=== PATIENT | female | born 1975 | race Hispanic/Latino ===

== ENCOUNTER → 2022-12-31 | Outpatient (CLI) | payer BC | END | disposition home or self-care (01) | LOC: SHCH 15:13 | PROVIDERS: ATTEND Internal Medicine | DX: R00.2 Palpitations (principal) | CPT/HCPCS: 93306 ==

== ENCOUNTER → 2023-01-20 | Outpatient (CLI) | payer BC | END | disposition home or self-care (01) | LOC: RAH 07:35 | PROVIDERS: ATTEND Internal Medicine Gastroenterology | DX: R68.81 Early satiety (principal); R10.13 Epigastric pain | CPT/HCPCS: 78264; A9541 ==

== ENCOUNTER → 2023-01-26 | Outpatient (CLI) | payer BC | END | disposition home or self-care (01) | LOC: RAH 09:56 | PROVIDERS: ATTEND Internal Medicine Gastroenterology | DX: K21.9 Gastro-esophageal reflux disease without esophagitis (principal); R10.13 Epigastric pain; R68.81 Early satiety | CPT/HCPCS: 74240 ==

== ENCOUNTER → 2025-01-11 | Outpatient (CLI) | payer BC ==
--- NOTE | 2025-01-13 08:56 | HMCIMG ---
Exam Type: MAMMO SCREENING BILATERAL Clinical Information: ROUTINE SCREENING Comparison: None Technique: Mammogram with CAD was performed with CC and MLO projections. CAD shows no worrisome regions. FINDINGS: The breasts are almost entirely fatty. No dominant mass or suspicious microcalcification identified. There is no nipple retraction or skin thickening. IMPRESSION: 1. No mammographic signs of malignancy. 2. Routine follow-up recommended. CATEGORY 1: NEGATIVE Note: A negative x-ray should not delay biopsy if a dominant or clinically suspicious mass is present, since 8-10% of cancers are not identified by mammography.
== END | disposition home or self-care (01) ==
LOC: RAH 13:43
PROVIDERS: ATTEND Nurse Practitioner Pediatrics
DX: Z12.31 Encounter for screening mammogram for malignant neoplasm of breast (principal)
CPT/HCPCS: 77067

== ENCOUNTER 2025-03-24 10:03 | Emergency (ER) | payer BC ==
[~2025-03-24] VITALS: Ht 160 cm; Wt 90.3 kg
[2025-03-24 10:30] LABS: IMMATURE GRANULOCYTE ABSOLUTE 0.02 K/uL (0-1); NUCLEATED RED BLOOD CELLS 0.0 % (0.0-0.19); PLATELET COUNT (AUTO) 234 K/uL (130-400); RED BLOOD CELL COUNT(AUTO) 4.86 MIL/uL (4.00-5.50); RED CELL DISTRIBUTION WIDTH 13.8 % (11.0-15.5); WHITE BLOOD COUNT (AUTO) 5.3 K/uL (4.8-10.8)
[2025-03-24 10:31] LABS: APPEARANCE,URINE CLEAR (CLEAR); GLUCOSE, URINE (UA) NEGATIVE (NEGATIVE); LEUKOCYTE ESTERASE ,URINE TRACE Leu/uL (NEGATIVE); NITRATE,URINE NEGATIVE (NEGATIVE); OCCULT BLOOD,URINE TRACE-INTACT (NEGATIVE)
[2025-03-24 10:35] LABS: CREATININE 0.7 mg/dL (0.5-1.0); GLOMERULAR FILTR. RATE CALC 105.0 mL/min (>90); GLUCOSE,RANDOM 104.0 mg/dL (70-105); SODIUM SERUM 140.0 mmol/L (136-145); UREA NITROGEN, BLOOD 21.0 mg/dL (7-18)
--- NOTE | 2025-03-24 11:10 | HMCIMG ---
EXAM: CT Abdomen and Pelvis Without IV contrast CLINICAL HISTORY: RLQ pain, R flank pain TECHNIQUE: Axial computed tomography images of the abdomen and pelvis without intravenous contrast. CONTRAST: No IV contrast. COMPARISON: None provided. FINDINGS: LUNG BASES: The lung bases appear clear. No pleural effusions are seen. LIVER: Unremarkable. GALLBLADDER AND BILE DUCTS: The gallbladder appears within normal limits. No radioopaque gallstones are seen. No biliary ductal dilatation is evident. PANCREAS: Unremarkable. SPLEEN: Unremarkable. ADRENAL GLANDS: Unremarkable. KIDNEYS, URETERS, AND BLADDER: Thickening of the urinary bladder which may be due to underdistention or cystitis. No urinary calculi. No hydronephrosis. STOMACH AND BOWEL: No bowel obstruction or inflammation. Large amount of stool in the colon, consistent with constipation. 9.2 x 5.3 x 3.2 cm fat-containing umbilical hernia. No bowel containing hernia. APPENDIX: Normal appendix. PERITONEUM: No free fluid. No free air. LYMPH NODES: No lymphadenopathy is evident. REPRODUCTIVE: Unremarkable as visualized. VASCULATURE: No evidence of abdominal aortic aneurysm. BONES: No aggressive appearing osseous lesion. No acute osseous pathology evident. IMPRESSION: 1. Thickening of the urinary bladder which may be due to underdistention or cystitis. 2. No bowel obstruction or inflammation. Constipation. Normal appendix. 3. 9.2 x 5.3 x 3.2 cm fat-containing umbilical hernia. No bowel containing hernia. 4. No urinary calculi. No hydronephrosis. /[place]
[2025-03-24 11:18] LABS: SQUAMOUS EPITHELIAL CELL,UR Few /HPF (0-2)
--- NOTE | 2025-03-24 11:54 | ERN ---
General Chief Complaint: Abdominal Pain Stated Complaint: RLQ PAIN Time Seen by MD: 10:11 Time Seen by Midlevel: 10:11 Source: patient History of Present Illness Initial Comments 49-year-old female who presents to the emergency department due to lower abdominal pain onset eight days. Patient reports urinary frequency, nausea but denies any fevers, vomiting, hematuria or further associated symptoms. Patient was diagnosed and treated for a urinary tract infection one month ago however patient did not complete. Patient was seen by PCP two days ago diagnosed once again with a UTI and initiated on antibiotics (Cipro). Patient has not taken any pain medications. PMHx abdominal hernia, gastritis Allergies: Coded Allergies: No Known Drug Allergies (Verified Allergy, Unknown, 03/06/14) Past Medical History Past Medical History: Other Medical History Other: HERNIA, GATRITIS Past Surgical History: BTL ROS Dictation Constitutional: Negative for fever,chills, and weight loss Eyes: Negative for injury, pain,redness, and discharge ENT: Negative for injury,pain or swelling Cardiovascular: Negative for chest pain, palpitations, and edema Respiratory: Negative for shortness of breath, cough, and wheezing, Abdomen/GI: Positive for nausea, lower abdominal pain Negative for vomiting, diarrhea, and constipation Back: Negative for injury and pain : Positive for urinary frequency Negative for painful urination, bleeding or discharge MS/Extremity: Negative for injury and deformity Skin: Negative for rash, and discoloration Neuro: Negative for headache, weakness, numbness, tingling, and seizure Psych: Negative for suicide ideation, homicidal ideation, and hallucinations Physical Exam Physical Exam Dictation General: awake, alert, no acute distress Head/Face: Normocephalic, atraumatic Eyes: PERRL, EOMI, normal conjunctiva ENT: oral cavity clear, oral mucosa moist Neck: Supple, normal range of motion Cardiovascular: RRR, normal S1/S2 Respiratory: CTAB, no respiratory distress Abdomen: Soft, non-tender, non-distended, no guarding or rebound. Skin: Warm, dry, normal turgor, no rash MS/Extremity: Pulses equal, no cyanosis, neurovascular intact, FROM Neuro: COAx4, GCS 15, strength 5/5, CN 2-12 intact, normal cerebellar exam, normal gait Psych: Normal behavior, mood, and affect normal Results Laboratory and Microbiology Lab and Micro Result Laboratory Tests Test 03/24/25 10:15 03/24/25 10:18 Urine Color YELLOW (YELLOW) Urine Appearance CLEAR (CLEAR) Urine pH 6.5 (5.0-8.0) Urine Specific [place] 1.026 (1.001-1.031) Urine Protein NEGATIVE mg/dL (NEGATIVE) Urine Glucose (UA) NEGATIVE mg/dL (NEGATIVE) Urine Ketones NEGATIVE mg/dL (NEGATIVE) Urine Occult Blood TRACE-INTACT (NEGATIVE) H Urine Nitrate NEGATIVE (NEGATIVE) Urine Bilirubin NEGATIVE mg/dL (NEGATIVE) Urine Urobilinogen 0.2 mg/dL (0.2-1.0) Urine Leukocyte Esterase TRACE [place]/uL (NEGATIVE) H Urine RBC 0-1 /HPF (0-1) Urine WBC 2-5 /HPF (0-1) H Urine Squamous Epithelial Cells Few /HPF (0-2) Urine Bacteria Rare /HPF (None Seen) White Blood Count 5.3 K/uL (4.8-10.8) Red Blood Count 4.86 MIL/uL (4.00-5.50) Hemoglobin 14.1 g/dL (12.0-16.0) Hematocrit 43.4 % (36-48) Mean Corpuscular Volume 89.3 fL (79-99) Mean Corpuscular Hemoglobin 29.0 pg (27.0-33.0) Mean Corpuscular Hemoglobin Concent 32.5 g/dL (32.0-36.0) Red Cell Distribution Width 13.8 % (11.0-15.5) Platelet Count 234 K/uL (130-400) Mean Platelet Volume 9.9 fL (7.5-10.5) Immature Granulocyte % (Auto) 0.4 % (0-1) Neutrophils (%) (Auto) 50.1 % (40.0-77.0) Lymphocytes (%) (Auto) 38.4 % (21.0-51.0) Monocytes (%) (Auto) 6.2 % (3.0-13.0) Eosinophils (%) (Auto) 3.6 % (0.0-8.0) Basophils (%) (Auto) 1.3 % (0.0-5.0) Neutrophils # (Auto) 2.7 K/uL (1.8-7.7) Lymphocytes # (Auto) 2.0 K/uL (1.0-4.8) Monocytes # (Auto) 0.3 K/uL (0.1-1.0) Eosinophils # (Auto) 0.19 K/uL (0.00-0.70) Basophils # (Auto) 0.07 K/uL (0.00-0.20) Absolute Immature Granulocyte (auto 0.02 K/uL (0-1) Nucleated Red Blood Cells 0.0 % (0.0-0.19) Sodium Level 140 mmol/L (136-145) Potassium Level 4.2 mmol/L (3.5-5.1) Chloride Level 103 mmol/L (101-111) Carbon Dioxide Level 32 mmol/L (21-32) Blood Urea Nitrogen 21 mg/dL (7-18) H Creatinine 0.7 mg/dL (0.5-1.0) Glomerular Filtration Rate Calc 105 mL/min (>90) Random Glucose 104 mg/dL (70-105) Total Calcium 8.8 mg/dL (8.5-10.1) Labs Reviewed?: Yes EKG/XRAY/US/CT/MRI CT Scan Comment REASON: RLQ pain, R flank pain ORDERING PHYSICIAN: RENEE KIM PROCEDURE: ABD PEL WO - CT ABDOMEN/PELVIS W/O CONTRAST EXAM: CT Abdomen and Pelvis Without IV contrast CLINICAL HISTORY: RLQ pain, R flank pain TECHNIQUE: Axial computed tomography images of the abdomen and pelvis without intravenous contrast. CONTRAST: No IV contrast. COMPARISON: None provided. FINDINGS: LUNG BASES: The lung bases appear clear. No pleural effusions are seen. LIVER: Unremarkable. GALLBLADDER AND BILE DUCTS: The gallbladder appears within normal limits. No radioopaque gallstones are seen. No biliary ductal dilatation is evident. PANCREAS: Unremarkable. SPLEEN: Unremarkable. ADRENAL GLANDS: Unremarkable. KIDNEYS, URETERS, AND BLADDER: Thickening of the urinary bladder which may be due to underdistention or cystitis. No urinary calculi. No hydronephrosis. STOMACH AND BOWEL: No bowel obstruction or inflammation. Large amount of stool in the colon, consistent with constipation. 9.2 x 5.3 x 3.2 cm fat-containing umbilical hernia. No bowel containing hernia. APPENDIX: Normal appendix. PERITONEUM: No free fluid. No free air. LYMPH NODES: No lymphadenopathy is evident. REPRODUCTIVE: Unremarkable as visualized. VASCULATURE: No evidence of abdominal aortic aneurysm. BONES: No aggressive appearing osseous lesion. No acute osseous pathology evident. IMPRESSION: 1. Thickening of the urinary bladder which may be due to underdistention or cystitis. 2. No bowel obstruction or inflammation. Constipation. Normal appendix. 3. 9.2 x 5.3 x 3.2 cm fat-containing umbilical hernia. No bowel containing hernia. 4. No urinary calculi. No hydronephrosis. /[place] DICTATED BY: SLIM LYLES MD DATE: 03/24/25 1209 MDM MDM: Differential diagnosis: UTI, appendicitis, pyelonephritis, cystitis Rationale: 49-year-old female who presents to the emergency department due to lower abdominal pain onset eight days. Patient reports urinary frequency, nausea but denies any fevers, vomiting, hematuria or further associated symptoms. Patient was diagnosed and treated for a urinary tract infection one month ago however patient did not complete. Patient was seen by PCP two days ago diagnosed once again with a UTI and initiated on antibiotics (Cipro). Patient has not taken any pain medications. PMHx abdominal hernia, gastritis Per physical examination patient is in no acute distress, abdomen is soft nontender. Vitals within normal limits during ED course. Labs obtained CBC is within normal limits, chemistry nonspecific. UA indicates a UTI with trace of leukocyte esterase and 2-[address] abdomen and pelvis obtained indicating urinary bladder thickening consistent with cystitis, no bowel obstructions, normal appendix, umbilical hernia containing fat. Patient was educated on findings and diagnosis. Acetaminophen and Pyridium administered in the ED. patient was educated on continuing current antibiotics. Advised to follow up with PCP. Return to the emergency department if any worsening symptoms. Patient verbalized understanding. Patient stable for discharge. There are no social concerns with this patient. I independently interpreted the test that were performed, results were reviewed by me and considered findings on radiology if ordered. Medical management and examination interpretation discussions were had by me with other qualified healthcare professionals as indicated for the patient's care. ED Course Orders Procedure Category Date Status Time Cbc With Differential LAB 03/24/25 Complete 10:12 Basic Metabolic Panel LAB 03/24/25 Complete 10:12 Urinalysis LAB 03/24/25 Complete W/Microscopic 10:12 Ct Abdomen/Pelvis W/O CT 03/24/25 Resulted Contrast 10:19 Ondansetron Odt 4mg PHA 03/24/25 Complete Tab (Zofran 4mg Odt) 10:30 Phenazopyridine Hcl PHA 03/24/25 In Process 200 Mg Tab (Pyridium 12:00 Acetaminophen 500mg PHA 03/24/25 In Process Tab (Tylenol 500mg T 12:00 Current Medications Medications (Trade) Dose Ordered Sig/Monique Route PRN Reason Start Time Stop Time Status Last Admin Dose Admin Acetaminophen (TYLenol 500MG TAB) 1,000 mg ONCE ONCE PO 03/24/25 12:00 03/24/25 12:01 Ondansetron HCl (zoFRAN 4MG ODT) 4 mg ONCE ONCE SL 03/24/25 10:30 03/24/25 10:31 DC 03/24/25 10:49 Phenazopyridine HCl (PYRIdium HCL 200 MG TAB) 200 mg ONCE ONCE PO 03/24/25 12:00 03/24/25 12:01 Vital Signs Date Time Temp Pulse Resp B/P (MAP) Pulse Ox O2 Delivery O2 Flow Rate FiO2 03/24/25 10:04 98.2 63 16 145/76 99 Room Air 0 DX & DISP Disposition: Discharge Departure Impression: Primary Impression: Cystitis Additional Impression: UTI (urinary tract infection) Condition: Stable Additional Instructions: Discharge home. Rest. Follow up with primary care DrJas in 24 hours. Return to the ER for any acute changes or worsening symptoms. If any medications were prescribed take as directed. Okay to continue home medications unless otherwise discussed during your visit in the emergency room today. Patient was also advised to follow-up with primary care physician in 1 to 2 days for continued monitoring. Referrals: RENARD STOCK DO (PCP) I performed the substantive portion of the visit. I have reviewed and personally made and approve the management plan that is documented in the notes by myself or the SY. I acknowledge full responsibility for the patient's management plan. RENEE KIM Mar 24, 2025 11:54
[2025-03-24] MEDS: PHENAZOpyridine HCL 200 MG TAB 200 MG TABLET PO ONE (12:01)
[2025-03-24 12:17] VITALS: BP 137/75; PULSE 65; RESP 16; TEMP 98.2; O2SAT 99
== END 2025-03-24 12:19 | disposition home or self-care (01) ==
LOC: EDH 10:03
DX: N30.90 Cystitis, unspecified without hematuria (principal); Z98.51 Tubal ligation status
CPT/HCPCS: 36415; 74176; 80048; 81001; 85025; 99284